=== PATIENT | female | born 1945 | race Caucasian/White ===

== ENCOUNTER 2018-05-05 15:07 | Emergency (ER) | payer OTHER ==
--- OUTSIDE RECORDS SUMMARY | 2018-05-05 15:09 | XMS REPORT | Clinical Summary ---
:1945 Author Organization [facility] Address [address] [place] [address] Care Team Providers Name Role Phone Leidy Zeeeduin Haleyson Primary Care Provider Allergies No Known Allergies Current Medications No known medications Active Problems Not on file Encounters Date Type Specialty Care Team Description 03/26/2018 Hospital Encounter Radiology Aayush Marques Chronic constipation 03/26/2018 Transcribe Orders Access Nancy Robledo Chronic constipation JOSE [place] (Primary Dx) after 05/04/2017 Social History Tobacco Use Types Packs/Day Years Used Date Never Smoker Alcohol Use Drinks/Week oz/Week Comments Yes 1 a week Sex Assigned at Date Recorded Not on file Last Filed Vital Signs Vital Sign Reading Time Taken Blood Pressure - - Pulse - - Temperature - - Respiratory Rate - - Oxygen Saturation - - Inhaled Oxygen Concentration - - Weight 45.8 kg (101 lb) 03/26/2018 8:26 AM CDT Height 160 cm (5' 3") 03/26/2018 8:26 AM CDT Body Mass Index 17.89 03/26/2018 8:26 AM CDT Plan of Treatment Health Maintenance Due Date Last Done Comments BREAST CANCER SCREENING 01/28/1994 COLON CANCER SCREENING 01/28/1994 SHINGRIX VACCINE (#1) 01/28/1994 ZOSTER VACCINE 2004 PNEUMOCOCCAL POLYSACCHARIDE VACCINE AGE 65 AND OVER 01/28/2009 PNEUMOCOCCAL-13 01/28/2009 INFLUENZA VACCINE 03/07/2018 Implants Implanted Type Area Wellfield Technician Device Expiration Model / Identifier Date Serial / Lot Strip Opthalmic Wide Grvd T[employer] Sld [place] 3.5mm - [id number] Surgical Left: LABTICIAN 07/06/2021 [id number] / Implanted: Qty: 1 on 10/05/2016 by Celso Davila MD Implants; Eye / Expanders; [id number] Extenders; Surgical Wires Sleeve Rnd Styl 70 Sceleral Bcklng [place] Strl - [id number] Surgical Left: LABTICIAN 07/06/2021 [id number] / Implanted: Qty: 1 on 10/05/2016 by Celso Davila MD Implants; Eye / Expanders; [id number] Extenders; Surgical Wires Procedures Procedure Name Priority Date/Time Associated Diagnosis Comments CT ABDOMEN PELVIS W Routine 03/26/2018 9:11 Chronic constipation Results for this CONTRAST AM CDT procedure are in the results section. ESTIMATED GFR Routine 03/26/2018 8:24 Results for this AM CDT procedure are in the results section. POC CREATININE Routine 03/26/2018 8:24 Results for this AM CDT procedure are in the results section. after 05/04/[address] Abdomen Pelvis W Contrast (03/26/2018 9:11 AM) Narrative Performed At CT ABDOMEN PELVIS W CONTRAST RADIANT CLINICAL INDICATION: K59.09 Other constipation, CHRONIC CONSTIPATION TECHNIQUE:Multidetector CT imaging of the abdomen and pelvis was performed following the intravenous administration of iodinated contrast with automated exposure control and/or iterative reconstruction techniques to radiation dose. COMPARISON:None FINDINGS: LUNG BASES:Clear. LIVER:There is mild steatosis of the liver. BILIARY:Normal. SPLEEN:Multiple calcified granuloma. PANCREAS:Normal. ADRENALS:Normal. KIDNEYS:There are too small to characterize hypodensities in the upper pole left kidney, statistically most likely a cystsmedially. An additional very low density focus is noted laterally (coronal image 35) consistent with a 6 mm fat-containing angiomyolipoma. GI:Large and small bowel are normal in caliber.There is mild to moderate amount stool through the transverse colon and proximal descending colon mixed with oral contrast but the distal colon is evacuated. No significant stool is identified in the right colon.No inflammatory changes are associated with the bowel. VASCULAR:Mild atherosclerosis. LYMPH NODES:No enlarged lymph nodes in the abdomen or pelvis. PELVIS:No lymphadenopathy or abnormal fluid collection.Urinary bladder is collapsed. Uterus is not visualized. BONES:Mild degenerative changes. OTHER: IMPRESSION: Mild amount stool in the left colon may reflect constipation although without significant distal stool. Incidental findings as described. Thank you for allowing us to participate in the care of your patient. [facility]-[id number] Procedure Note Hm Interface, Radiology Results Incoming - 03/26/2018 9:[address] ABDOMEN PELVIS W CONTRAST CLINICAL INDICATION: K59.09 Other constipation, CHRONIC CONSTIPATION TECHNIQUE: Multidetector CT imaging of the abdomen and pelvis was performed following the intravenous administration of iodinated contrast with automated exposure control and/or iterative reconstruction techniques to radiation dose. COMPARISON: None FINDINGS: LUNG BASES: Clear. LIVER: There is mild steatosis of the liver. BILIARY: Normal. SPLEEN: Multiple calcified granuloma. PANCREAS: Normal. ADRENALS: Normal. KIDNEYS: There are too small to characterize hypodensities in the upper pole left kidney, statistically most likely a cystsmedially. An additional very low density focus is noted laterally (coronal image 35) consistent with a 6 mm fat- containing angiomyolipoma. GI: Large and small bowel are normal in caliber. There is mild to moderate amount stool through the transverse colon and proximal descending colon mixed with oral contrast but the distal colon is evacuated. No significant stool is identified in the right colon. No inflammatory changes are associated with the bowel. VASCULAR: Mild atherosclerosis. LYMPH NODES: No enlarged lymph nodes in the abdomen or pelvis. PELVIS: No lymphadenopathy or abnormal fluid collection. Urinary bladder is collapsed. Uterus is not visualized. BONES: Mild degenerative changes. OTHER: IMPRESSION: Mild amount stool in the left colon may reflect constipation although without significant distal stool. Incidental findings as described. Thank you for allowing us to participate in the care of your patient. [facility]-[id number] Performing Organization Address City/State/Zipcode Phone Number [facility] [address] [place] [address] Estimated GFR (03/26/2018 8:24 AM) GFR Non Af Amer 61 mL/min/1.73 m2 [facility] DEPARTMENT OF PATHOLOGY AND GENOMIC MEDICINE GFR Af Amer 74 mL/min/1.73 m2 [facility] DEPARTMENT OF Comment: PATHOLOGY AND GENOMIC Chronic kidney disease: <60 mL/min/1.73m2 MEDICINE Kidney failure: <15 mL/min/1.73m2 The estimated GFR is calculated from the IDMS-traceable Modification of Diet in Renal Disease Equation. The accuracy of the calculation is poor when the creatinine is normal. Calculated values >90 mL/min/1.73m2 are not reported. This equation has not been validated in children (<18 years), women, the elderly (>70 years), or ethnic groups other than Caucasians and Americans. Specimen Blood Performing Organization Address City/State/[facility] Phone Number [facility] DEPARTMENT OF PATHOLOGY AND [address] [place] [address] GENOMIC MEDICINE POC creatinine (03/26/2018 8:24 AM) POC creatinine 0.9 0.5 - 0.9 mg/dl [facility] DEPARTMENT OF PATHOLOGY AND Comment: GENOMIC MEDICINE Meter ID: [id number] Customer Support Specialist: Benson Perez Specimen Blood Performing Organization Address City/[facility] Phone Number [facility] DEPARTMENT OF PATHOLOGY AND [address] [place] [address] GENOMIC MEDICINE after 05/04/2017 Insurance Payer Benefit Plan / Group Subscriber ID Type Phone Address UHC MEDICARE UNITED[facility] xxxxxxxxx O Home: [address] [phone] [place], [place] [address]
[2018-05-05] MEDS ORDERED: LIDOCAINE 2% MPF 5 ML VIAL ONE (15:31)
[2018-05-05] MEDS ORDERED: LIDOCAINE 1% W/EPI 1:100,000 MDV 50 ML VIAL ONE (15:31)
[2018-05-05] MEDS ORDERED: TETANUS & DIPHTHERIA TOX,ADULT 0.5 ML VIAL ONE (15:53)
--- NOTE | 2018-05-05 16:59 | EDPHYS ---
Physician Documentation [facility] Name: Sima Calhoun Age: 73 yrs Sex: Female : 1945 Arrival Date: 05/05/2018 Time: 15:09 Bed 7 Private MD: ED Physician Maico Flowers HPI: 05/05 15:35 This 73 yrs old Female presents to ER via Ambulatory with complaints of cp Laceration To Arm. 15:45 The patient has a laceration occurred at home, and there are no complicating factors. cp The injury was accidental. 15:45 The laceration(s) is(are) located on the right forearm. Onset: The symptoms/episode cp began/occurred today. Associated signs and symptoms: Pertinent negatives: heavy bleeding, suspected foreign body. 15:45 Patient reports striking arm against frame of hammock. cp Historical: - Allergies: 15:14 No Known Allergies; aj - Home Meds: 15:14 alprazolam 1 mg Oral Tb24 [Active]; atorvastatin 10 mg Oral tab [Active]; aj dextroamphetamine-amphetamine(base) Oral [Active]; levothyroxine oral [Active]; lisinopril 5 mg Oral tab [Active]; meloxicam 7.5 mg/5 mL Oral susp [Active]; - PMHx: 15:14 ADD/ADHD; Anxiety; Chronic pain; Hyperlipidemia; Hypertension; Hypothyroidism; aj - PSHx: 15:14 Hysterectomy; aj - Immunization history:: Last tetanus immunization: unknown. - Social history:: Smoking status: Patient/guardian denies using tobacco. - Ebola Screening: : Patient negative for fever greater than or equal to 101.5 degrees Fahrenheit, and additional compatible Ebola Virus Disease symptoms Patient denies exposure to infectious person Patient denies travel to an Ebola-affected area in the 21 days before illness onset No symptoms or risks identified at this time. ROS: 15:40 Constitutional: Negative for body aches, chills, fever, poor PO intake. cp 15:40 Eyes: Negative for injury, pain, redness, and discharge. cp 15:40 Cardiovascular: Negative for chest pain, palpitations. 15:40 Respiratory: Negative for cough, shortness of breath, wheezing. 15:40 Abdomen/GI: Negative for abdominal pain, nausea, vomiting, and diarrhea. 15:40 Skin: Positive for laceration(s), of the right forearm. 15:40 Neuro: Negative for numbness. 15:40 All other systems are negative. Exam: 15:45 Constitutional: The patient appears in no acute distress, alert, awake, well developed, cp well nourished. 15:45 Head/Face: Normocephalic, atraumatic. cp 15:45 Eyes: Periorbital structures: appear normal, Conjunctiva: normal, no exudate, no injection, Lids and lashes: appear normal, bilaterally. 15:45 ENT: External ear(s): are unremarkable, Nose: is normal, Mouth: Lips: moist, Oral mucosa: moist, Posterior pharynx: is normal, airway is patent. 15:45 Chest/axilla: Inspection: normal. 15:45 Cardiovascular: Rate: normal, Pulses: Pulses are 2+ in right radial artery and left radial artery. 15:45 Respiratory: the patient does not display signs of respiratory distress, Respirations: normal, no use of accessory muscles, no retractions, no splinting, no tachypnea. 15:45 Abdomen/GI: Inspection: abdomen appears normal. 15:45 Back: pain, is absent, ROM is normal. 15:45 Musculoskeletal/extremity: Exam is negative for bony tenderness, decreased range of motion. 15:45 Skin: injury, laceration(s), the wound is approximately 12 cm(s), of the right forearm, that can be described as clean, no foreign body, irregular, with mild bleeding. 15:45 Neuro: Motor: moves all fours, strength is normal, Sensation: no obvious gross deficits. Vital Signs: 15:14 BP 152 / 91; Pulse 83; Resp 17; Temp 98.1; Pulse Ox 96% on R/A; Weight 53.07 kg; Height aj 5 ft. 3 in. (160.02 cm); 17:09 BP 151 / 84; Pulse 79; Resp 16; Pulse Ox 97% on R/A; la1 15:14 Body Mass Index 20.73 (53.07 kg, 160.02 cm) aj Procedures: 17:00 Splinting: Splint applied to right forearm using Orthoglass splint, applied by tech. cp Examined by me, post splint application: neurovascular intact, Patient tolerated well. Laceration: 16:35 Wound Repair of 12cm ( 4.7in ) subcutaneous laceration to dorsal aspect of right cp forearm. Linear shaped.. Distal neuro/vascular/tendon intact. Anesthesia: Wound infiltrated with 12 mls of 1% lidocaine w/ Epi. Wound prep: Moderate cleansing by me, Wound irrigation by me, Copious irrigation. Skin closed with 14 4-0 Prolene using simple sutures and sterile technique. Dressed with Bacitracin, 4x4's, ulna gutter splint. Patient tolerated well. MDM: 15:19 Patient medically screened. cp 16:00 Differential diagnosis: superficial laceration, tendon injury, vascular injury. cp 16:55 Data reviewed: vital signs, nurses notes, and as a result, I will discharge patient. cp 16:55 Counseling: I had a detailed discussion with the patient and/or guardian regarding: the cp historical points, exam findings, and any diagnostic results supporting the discharge/admit diagnosis, the need for outpatient follow up, a family practitioner, to return to the emergency department if symptoms worsen or persist or if there are any questions or concerns that arise at home. Response to treatment: the patient's symptoms have markedly improved after treatment, and as a result, I will discharge patient. 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 Exp: la1 05/03/2020. Lot #: [id number]. } Route: IM; Site: left deltoid; 17:08 Follow up: Response: No adverse reaction la1 Disposition: 17:57 Co-signature as Attending Physician, Maico Flowers MD. Disposition: 05/05/18 16:57 Discharged to Home. Impression: Laceration without foreign body of right forearm. - Condition is Stable. - Discharge Instructions: Laceration Care, Adult. - Medication Reconciliation Form, Thank You Letter, Antibiotic Education, Prescription Opioid Use form. - Follow up: Private Physician; When: 1 week; Reason: Wound Recheck. - Problem is new. - Symptoms have improved. Signatures: Vandana Jorge RN RN aj Fortunato Plummer RN RN la1 Deon Gomez PA PA cp Starr, Gregory, MD MD gs Corrections: (The following items were deleted from the chart) 17:09 16:57 05/05/2018 16:57 Discharged to Home. Impression: Laceration without foreign body la1 of right forearm. Condition is Stable. Forms are Medication Reconciliation Form, Thank You Letter, Antibiotic Education, Prescription Opioid Use. Follow up: Private Physician; When: 1 week; Reason: Wound Recheck. Problem is new. Symptoms have improved. cp
--- NOTE | 2018-05-05 16:59 | ER ---
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 Denies LOC. Transition of care: patient was not received from another setting of care. Complicating Factors: There are no complicating factors for this patient. Onset of symptoms was May 05, 2018. Risk Assessment: Do you want to hurt yourself or someone else? Patient reports no desire to harm self or others. Initial Sepsis Screen: Does the patient meet any 2 criteria? No. Patient's initial sepsis screen is negative. Does the patient have a suspected source of infection? No. Patient's initial sepsis screen is negative. Care prior to arrival: None. 15:13 Method Of Arrival: Ambulatory 15:13 Acuity: JEANIE 4 Triage Assessment: 15:14 General: Appears in no apparent distress. comfortable, Behavior is calm, cooperative, aj appropriate for age. Pain: Complains of pain in dorsal aspect of right forearm. Neuro: Level of Consciousness is awake, alert, obeys commands, Oriented to person, place, time, situation, Appropriate for age. Respiratory: Airway is patent Respiratory effort is even, unlabored, Respiratory pattern is regular, symmetrical. Derm: Skin is intact, is healthy with good turgor, Skin is pink, warm \T\ dry. normal. Injury Description: Laceration sustained to dorsal aspect of right forearm. Historical: - Allergies: 15:14 No Known Allergies; aj - Home Meds: 15:14 alprazolam 1 mg Oral Tb24 [Active]; atorvastatin 10 mg Oral tab [Active]; aj dextroamphetamine-amphetamine(base) Oral [Active]; levothyroxine oral [Active]; lisinopril 5 mg Oral tab [Active]; meloxicam 7.5 mg/5 mL Oral susp [Active]; - PMHx: 15:14 ADD/ADHD; Anxiety; Chronic pain; Hyperlipidemia; Hypertension; Hypothyroidism; aj - PSHx: 15:14 Hysterectomy; aj - Immunization history:: Last tetanus immunization: unknown. - Social history:: Smoking status: Patient/guardian denies using tobacco. - Ebola Screening: : Patient negative for fever greater than or equal to 101.5 degrees Fahrenheit, and additional compatible Ebola Virus Disease symptoms Patient denies exposure to infectious person Patient denies travel to an Ebola-affected area in the 21 days before illness onset No symptoms or risks identified at this time. Screenin:20 Abuse screen: Denies threats or abuse. Nutritional screening: No deficits noted. la1 Tuberculosis screening: No symptoms or risk factors identified. Fall Risk None identified. Assessment: 16:19 General: Appears in no apparent distress. Behavior is calm, cooperative. Pain: Denies la1 pain. Neuro: Level of Consciousness is awake, alert, obeys commands, Oriented to person, place, time, situation. Cardiovascular: Capillary refill < 3 seconds Patient's skin is warm and dry. Respiratory: Airway is patent Respiratory effort is even, unlabored, Respiratory pattern is regular, symmetrical. Musculoskeletal: Circulation, motion, and sensation intact. Capillary refill < 3 seconds. Injury Description: Laceration sustained to dorsal aspect of right forearm is jagged, 2.6 to 7.5 cm long, was sustained 1-2 hours ago. is bleeding a small amount. 16:54 Reassessment: Patient appears in no apparent distress at this time. No changes from la1 previously documented assessment. Patient and/or family updated on plan of care and expected duration. Pain level reassessed. Vital Signs: 15:14 BP 152 / 91; Pulse 83; Resp 17; Temp 98.1; Pulse Ox 96% on R/A; Weight 53.07 kg; Height aj 5 ft. 3 in. (160.02 cm); 17:09 BP 151 / 84; Pulse 79; Resp 16; Pulse Ox 97% on R/A; la1 15:14 Body Mass Index 20.73 (53.07 kg, 160.02 cm) ED Course: 15:09 Patient arrived in ED. mr 15:14 Triage completed. aj 15:14 Arm band placed on left wrist. Patient placed in an exam room. aj 15:19 Deon Gomez PA is PHCP. cp 15:19 Maico Flowers MD is Attending Physician. cp 15:19 Fortunato Plummer, RN is Primary Nurse. la1 16:20 Bed in low position. Call light in reach. Side rails up X 1. la1 16:50 Orthoglass splint: Ulnar gutter/Boxer splint applied on right forearm. Radial pulse jb1 present and within normal limits before and after application of splint. Capillary refill two seconds before and after application of splint. 17:08 No provider procedures requiring assistance completed. Patient did not have IV access la1 during this emergency room visit. 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 Exp: la1 05/03/2020. Lot #: [id number]. } Route: IM; Site: left deltoid; 17:08 Follow up: Response: No adverse reaction la1 Outcome: 16:57 Discharge ordered by . cp 17:08 Discharged to home ambulatory. la1 17:08 Condition: stable 17:08 Discharge instructions given to patient, Instructed on discharge instructions, follow up and referral plans. medication usage, Demonstrated understanding of instructions, follow-up care. 17:09 Patient left the ED. la1 Signatures: Toni Damon jb1 Vandana Jorge RN RN aj Rivera, Maria mr Attema, Lee, RN RN la1 Deon Gomez PA PA cp
== END 2018-05-05 17:09 | disposition home or self-care (01) ==
LOC: ER 15:07
PROC: 0JQG0ZZ Repair Right Lower Arm Subcutaneous Tissue and Fascia, Open Approach (ICD-10-PCS; principal; 2018-05-05)
PROC: 2W3CX1Z Immobilization of Right Lower Arm using Splint (ICD-10-PCS; 2018-05-05)
DX: S51.811A Laceration without foreign body of right forearm, initial encounter (principal); W22.8XXA Striking against or struck by other objects, initial encounter; Y93.9 Activity, unspecified; Y92.009 Unspecified place in unspecified non-institutional (private) residence as the place of occurrence of the external cause; Z23 Encounter for immunization; I10 Essential (primary) hypertension; E78.5 Hyperlipidemia, unspecified; E03.9 Hypothyroidism, unspecified; F41.9 Anxiety disorder, unspecified; F90.9 Attention-deficit hyperactivity disorder, unspecified type
CPT/HCPCS: 90714; 99283

== ENCOUNTER 2018-10-10 11:02 | Emergency (ER) | payer OTHER ==
--- OUTSIDE RECORDS SUMMARY | 2018-10-10 11:05 | XMS REPORT | Clinical Summary ---
:1945 Author Organization [facility] Address [address] [place] [address] Care Team Providers Name Role Phone Yayo Josefina Haleyson Primary Care Provider Allergies No Known Allergies Medications No known medications Active Problems Not on file Encounters Date Type Specialty Care Team Description 03/26/2018 Hospital Encounter Radiology Aayush Marques Chronic constipation 03/26/2018 Transcribe Orders Access Nancy Robledo Chronic constipation JOSE [place] (Primary Dx) after 10/09/2017 Social History Tobacco Use Types Packs/Day Years Used Date Never Smoker Alcohol Use Drinks/Week oz/Week Comments Yes 1 a week Sex Assigned at Date Recorded Not on file Job Start Date Occupation Industry Not on file Not on file Not on file Travel History Travel Start Travel End No recent travel history available. Last Filed Vital Signs Vital Sign Reading [...] CANCER SCREENING 01/28/1994 COLON CANCER SCREENING 01/28/1994 SHINGLES VACCINES (#1) 01/28/1994 65+ PNEUMOCOCCAL VACCINE (1 of 2 - PCV13) 01/28/2009 PNEUMOCOCCAL POLYSACCHARIDE VACCINE AGE 65 AND OVER 01/28/2009 INFLUENZA VACCINE 03/07/2018 Implants Implanted Type Area Adjustment Examiner Device Shelf Model / Identifier Expiration Serial / Date Lot Strip Opthalmic Wide Grvd T[employer] Sld [place] 3.5mm - [id number] Surgical Left: LABTICIAN 07/06/2021 [id number] / Implanted: Qty: 1 on 10/05/2016 by Celso Davila MD Implants; Eye / Expanders; [id number] Extenders; Surgical Wires Sleeve Rnd Styl 70 Sceleral Bcklng [place] Strl - [id number] Surgical Left: LABTICIAN 07/06/2021 [id number] / Implanted: Qty: 1 on 10/05/2016 by Celso Davila MD Implants; Eye / Expanders; [id number] Extenders; Surgical Wires Procedures Procedure Name Priority [...] procedure are in the results section. after 10/09/[address] Abdomen Pelvis W Contrast (03/26/2018 9:11 AM CDT) Narrative Performed At CT ABDOMEN PELVIS W [...] participate in the care of your patient. [facility]-[id number] Procedure Note Hm Interface, Radiology Results Incoming [...] participate in the care of your patient. [facility]-[id number] Performing Organization Address City/State/Zipcode Phone Number [facility] [address] [place] [address] Estimated GFR (03/26/2018 8:24 AM CDT) GFR Non Af Amer 61 mL/min/1.73 m2 [facility] DEPARTMENT OF PATHOLOGY AND GENOMIC MEDICINE GFR Af Amer 74 mL/min/1.73 m2 [facility] DEPARTMENT OF Comment: PATHOLOGY AND GENOMIC Chronic [...] and Americans. Specimen Blood Performing Organization Address City/[facility] Phone Number [facility] DEPARTMENT OF PATHOLOGY AND [address] [place] [address] GENOMIC MEDICINE POC creatinine (03/26/2018 8:24 AM CDT) POC creatinine 0.9 0.5 - 0.9 mg/dl [facility] DEPARTMENT OF PATHOLOGY AND Comment: GENOMIC MEDICINE Meter ID: [id number] Sternman: Benson Perez Specimen Blood Performing Organization Address City/[facility] Phone Number [facility] DEPARTMENT OF PATHOLOGY AND [address] [place] [address] GENOMIC MEDICINE after 10/09/2017 Insurance Payer Benefit Plan / Group Subscriber ID Type Phone Address UHC MEDICARE [employer] MEDICARE xxxxxxxxx O Advance Directives Patient has advance care planning documents on file. For more information, please contact:Alex Cook[address] [place] [address]
--- OUTSIDE RECORDS SUMMARY | 2018-10-10 11:05 | XMS REPORT | Continuity of Care Document ---
:1945 Author Organization [facility] Address [address] [place] [phone] Phone Unavailable Care Team Providers Name Role Phone HENRRY LEIGH Primary Care Physician Insurance Providers Guarantor [employer] Address [address] [place] [phone] Email [email or web address] Policy Number [id number] Subscriber's Name Esau Calhoun Relationship Self / Same As Patient Group Number [id number] Group Name NA Advance Directives Directive Response Recorded Date/Time Patient/Family Given Education Material R/T Y - PB 07/11/18 07/11/18 9:45am Directives? Problems Medical Problem Onset Date Status Bronchitis Unknown Acute Eczema Unknown Acute Influenza A Unknown Acute Medications Current Home Medications Medication Dose Units Route Directions Days Qty Instructions Start Date Amoxicillin (Amoxil 500 Mg ORAL Every 8 Hours 500 Mg *) 500 Mg Cap Betamethasone Cre TOPICAL Twice A Day Dipropionate Aug (Betamethasone Dipropionat) 0.05 % Gel Hydroxyzine Hcl 25 Mg ORAL Three Times (Atarax 25 Mg*) 25 Daily As Needed Mg Tab Social History Social History Problem Response Recorded Date/Time Onset Date Status Hx Physical Abuse No 07/25/2016 9:06am Not Applicable Not Applicable Smoking Status Start Date Stop Date Never smoker Hospital Discharge Instructions No hospital discharge instruction information available. Plan of Care Prescriptions See Medication Section Functional Status No functional status information available. Allergies, Adverse Reactions, Alerts Allergen Type Severity Reaction Status Last Updated No Known Allergies Allergy Unknown Active 05/16/14 Immunizations No immunization information available. Vital Signs Acute Vital Signs Vital Response Date/Time Blood Pressure 139/56 mm Hg 07/11/2018 10:22am Pulse Pulse Rate (adult) 50 beats per minute (60 - 100) 07/11/2018 10:22am Respiratory Rate 16 breaths per minute (10 - 24) 07/11/2018 10:22am Temperature Source Temporal Artery Scan 07/11/2018 10:22am Results Laboratory Results Test Name Result Units Flags Reference Collection Result Comments Date/Time Date/Time Blood Urea 14 mg/dL 8-23 07/11/2018 07/11/2018 Nitrogen 10:09am 10:31am Creatinine 0.7 mg/dL 0.50-0.90 07/11/2018 07/11/2018 10:09am 10:31am Glomerular > 60.00 07/11/2018 07/11/2018 GFR RESULTS ARE REPORTED IN mL/min/1.73m2. Filtration 10:09am 10:31am Rate Calc Normal GFR: >60mL/min Moderately decreased GFR: 30-59 mL/min Severely decreased GFR: 15-29 mL/min Kidney Failure (or Dialysis): <15 mL/min The calculated eGFR is not valid for patients younger than 18 years or older than 75 years. Calcium Level 9.1 mg/dL 8.8-10.2 07/11/2018 07/11/2018 10:09am 10:31am Procedures No procedure information available. Encounters Encounter Location Arrival/Admit Date Discharge/Depart Date Attending Provider Discharged [place] 07/11/18 9:46am 08/06/18 11:59pm [facility]
--- NOTE | 2018-10-10 11:59 | EDPHYS ---
Physician Documentation [facility] Name: Sima Calhoun Age: 73 yrs Sex: Female : 1945 Arrival Date: 10/10/2018 Time: 11:05 Bed 16 Private MD: out of town, doctor ED Physician Oseas Su HPI: 10/10 11:57 This 73 yrs old Female presents to ER via Ambulatory with complaints of High pm1 Blood Pressure. 11:57 The patient has elevated blood pressure and discovered this at home, with a home device.pm1 11:57 Onset: The symptoms/episode began/occurred 3 month(s) ago. Modifying factors: The pm1 symptoms are aggravated by unknown . Associated signs and symptoms: The patient has no apparent associated signs or symptoms, Pertinent negatives: chest pain, dizziness, dyspnea, headache, lightheadedness, nausea, visual changes, vomiting, weakness. Severity of symptoms: in the emergency department the blood pressure is improved. The patient has experienced similar episodes in the past, a few times. The patient has been recently seen by a physician: the patient's primary care provider, with similar presenting complaints, given new BP medication, losartan, two weeks ago. Patient with systolic blood pressure 170 this AM. Patient had appointment today at 1530 for reevaluation of BP but canceled it to have blood pressure evaluated and treated in the ER. Historical: - Allergies: 11:18 No Known Allergies; tw2 - Home Meds: 11:18 Paxil 20 mg Oral tab 1 tab once daily [Active]; meloxicam 7.5 mg/5 mL Oral susp tw2 [Active]; alprazolam 1 mg Oral Tb24 [Active]; metoprolol tartrate 50 mg Oral tab 1 tab once daily [Active]; losartan 50 mg oral tab 1 tab once daily [Active]; levothyroxine 112 mcg oral tab 1 tab once daily [Active]; dextroamphetamine-amphetamine(base) 15 mg Oral 1 tab once daily [Active]; cyclobenzaprine 10 mg Oral tab 1 tab 3 times per day [Active]; atorvastatin 10 mg oral tab 1 tab once daily [Active]; - PMHx: 11:18 ADD/ADHD; Anxiety; Chronic pain; Hyperlipidemia; Hypertension; Hypothyroidism; tw2 - PSHx: 11:18 Hysterectomy; tw2 - Immunization history:: Adult Immunizations. - Social history:: Smoking status: Patient/guardian denies using tobacco. - Ebola Screening: : Patient denies travel to an Ebola-affected area in the 21 days before illness onset. ROS: 11:57 Constitutional: Negative for fever, chills, and weight loss, Eyes: Negative for injury, pm1 pain, redness, and discharge, ENT: Negative for injury, pain, and discharge, Neck: Negative for injury, pain, and swelling, Cardiovascular: Negative for chest pain, palpitations, and edema, Respiratory: Negative for shortness of breath, cough, wheezing, and pleuritic chest pain, Abdomen/GI: Negative for abdominal pain, nausea, vomiting, diarrhea, and constipation, Back: Negative for injury and pain, : Negative for injury, bleeding, discharge, and swelling, MS/Extremity: Negative for injury and deformity, Skin: Negative for injury, rash, and discoloration, Neuro: Negative for headache, weakness, numbness, tingling, and seizure. Exam: 11:57 Constitutional: This is a well developed, well nourished patient who is awake, alert, pm1 and in no acute distress. Head/Face: Normocephalic, atraumatic. Eyes: Pupils equal round and reactive to light, extra-ocular motions intact. Lids and lashes normal. Conjunctiva and sclera are non-icteric and not injected. Cornea within normal limits. Periorbital areas with no swelling, redness, or edema. ENT: Nares patent. No nasal discharge, no septal abnormalities noted. Tympanic membranes are normal and external auditory canals are clear. Oropharynx with no redness, swelling, or masses, exudates, or evidence of obstruction, uvula midline. Mucous membranes moist. Neck: Trachea midline, no thyromegaly or masses palpated, and no cervical lymphadenopathy. Supple, full range of motion without nuchal rigidity, or vertebral point tenderness. No Meningismus. Chest/axilla: Normal chest wall appearance and motion. Nontender with no deformity. No lesions are appreciated. Cardiovascular: Regular rate and rhythm with a normal S1 and S2. No gallops, murmurs, or rubs. Normal PMI, no JVD. No pulse deficits. Respiratory: Lungs have equal breath sounds bilaterally, clear to auscultation and percussion. No rales, rhonchi or wheezes noted. No increased work of breathing, no retractions or nasal flaring. Abdomen/GI: Soft, non-tender, with normal bowel sounds. No distension or tympany. No guarding or rebound. No evidence of tenderness throughout. Back: No spinal tenderness. No costovertebral tenderness. Full range of motion. Skin: Warm, dry with normal turgor. Normal color with no rashes, no lesions, and no evidence of cellulitis. MS/ Extremity: Pulses equal, no cyanosis. Neurovascular intact. Full, normal range of motion. 11:57 Neuro: Orientation: is normal, Motor: is normal, moves all fours, Sensation: is normal, no obvious gross deficits, Gait: is steady, at a normal pace, without difficulty. Vital Signs: 11:12 BP 168 / 97; Pulse 65; Resp 17; Temp 97.9(TE); Pulse Ox 98% on R/A; Weight 56.7 kg (R); tw2 Height 5 ft. 3 in. (160.02 cm); Pain 0/10; 12:04 BP 156 / 85; Pulse 65; Resp 18; Pulse Ox 100% on R/A; hj 11:12 Body Mass Index 22.14 (56.70 kg, 160.02 cm) tw2 MDM: 11:26 Patient medically screened. pm1 11:57 Data reviewed: vital signs. Data interpreted: Pulse oximetry: on room air is 98 %. pm1 Interpretation: normal. Counseling: I had a detailed discussion with the patient and/or guardian regarding: the historical points, exam findings, and any diagnostic results supporting the discharge/admit diagnosis, the need for outpatient follow up, to return to the emergency department if symptoms worsen or persist or if there are any questions or concerns that arise at home. Administered Medications: No medications were administered Disposition: 13:35 Co-signature as Attending Physician, Oseas Su MD I agree with the assessment and kdr plan of care. Disposition: 10/10/18 11:58 Discharged to Home. Impression: Essential (primary) hypertension. - Condition is Stable. - Discharge Instructions: Hypertension, How to Take Your Blood Pressure, [id number], DASH Eating Plan, Managing Your Hypertension. - Medication Reconciliation Form, Thank You Letter, Antibiotic Education form. - Follow up: Emergency Department; When: As needed; Reason: Worsening of condition. Follow up: Private Physician; When: 2 - 3 days; Reason: Recheck today's complaints, Continuance of care, Re-evaluation by your physician. - Problem is new. - Symptoms have improved. Signatures: Oseas Su MD MD [facility] Celestine Coburn RN RN hj Andre Castellanos, [employer] WORK[employer] pm1 Tabitha Rowley RN RN tw2 Corrections: (The following items were deleted from the chart) 12:06 11:58 10/10/2018 11:58 Discharged to Home. Impression: Essential (primary) hj hypertension. Condition is Stable. Forms are Medication Reconciliation Form, Thank You Letter, Antibiotic Education, Prescription Opioid Use. Follow up: Emergency Department; When: As needed; Reason: Worsening of condition. Follow up: Private Physician; When: 2 - 3 days; Reason: Recheck today's complaints, Continuance of care, Re-evaluation by your physician. Problem is new. Symptoms have improved. pm1
--- NOTE | 2018-10-10 11:59 | ER ---
Nurse's Notes [facility] Name: Sima Calhoun Age: 73 yrs Sex: Female : 1945 Arrival Date: 10/10/2018 Time: 11:05 Bed 16 Private MD: out of town, doctor Diagnosis: Essential (primary) hypertension Presentation: 10/10 11:11 Presenting complaint: Patient states: my blood pressure is high, it has been high for a tw2 couple of months on and off it was 170/111. Transition of care: patient was not received from another setting of care. Onset of symptoms was October 10, 2018. Risk Assessment: Do you want to hurt yourself or someone else? Patient reports no desire to harm self or others. Initial Sepsis Screen: Does the patient meet any 2 criteria? No. Patient's initial sepsis screen is negative. Does the patient have a suspected source of infection? No. Patient's initial sepsis screen is negative. Care prior to arrival: None. 11:11 Method Of Arrival: Ambulatory tw2 11:11 Acuity: JEANIE 4 tw2 Triage Assessment: 11:18 General: Appears slender, Behavior is anxious. Pain: Denies pain. tw2 Historical: - Allergies: 11:18 No Known Allergies; tw2 - Home Meds: 11:18 Paxil 20 mg Oral tab 1 tab once daily [Active]; meloxicam 7.5 mg/5 mL Oral susp tw2 [Active]; alprazolam 1 mg Oral Tb24 [Active]; metoprolol tartrate 50 mg Oral tab 1 tab once daily [Active]; losartan 50 mg oral tab 1 tab once daily [Active]; levothyroxine 112 mcg oral tab 1 tab once daily [Active]; dextroamphetamine-amphetamine(base) 15 mg Oral 1 tab once daily [Active]; cyclobenzaprine 10 mg Oral tab 1 tab 3 times per day [Active]; atorvastatin 10 mg oral tab 1 tab once daily [Active]; - PMHx: 11:18 ADD/ADHD; Anxiety; Chronic pain; Hyperlipidemia; Hypertension; Hypothyroidism; tw2 - PSHx: 11:18 Hysterectomy; tw2 - Immunization history:: Adult Immunizations. - Social history:: Smoking status: Patient/guardian denies using tobacco. - Ebola Screening: : Patient denies travel to an Ebola-affected area in the 21 days before illness onset. Screenin:27 Abuse screen: Denies threats or abuse. Denies injuries from another. Nutritional hj screening: No deficits noted. Tuberculosis screening: No symptoms or risk factors identified. Fall Risk None identified. Assessment: 11:28 General: Appears in no apparent distress. uncomfortable, Behavior is calm, cooperative, hj appropriate for age. Pain: Denies pain. Neuro: Level of Consciousness is awake, alert, obeys commands, Oriented to person, place, time, situation, Appropriate for age. Cardiovascular: Capillary refill < 3 seconds Patient's skin is warm and dry. Respiratory: Airway is patent Respiratory effort is even, unlabored, Respiratory pattern is regular, symmetrical. GI: No signs and/or symptoms were reported involving the gastrointestinal system. : No signs and/or symptoms were reported regarding the genitourinary system. EENT: No signs and/or symptoms were reported regarding the EENT system. Derm: No signs and/or symptoms reported regarding the dermatologic system. Musculoskeletal: No signs and/or symptoms reported regarding the musculoskeletal system. 12:05 Reassessment: D/C instructions given;. hj Vital Signs: 11:12 BP 168 / 97; Pulse 65; Resp 17; Temp 97.9(TE); Pulse Ox 98% on R/A; Weight 56.7 kg (R); tw2 Height 5 ft. 3 in. (160.02 cm); Pain 0/10; 12:04 BP 156 / 85; Pulse 65; Resp 18; Pulse Ox 100% on R/A; hj 11:12 Body Mass Index 22.14 (56.70 kg, 160.02 cm) tw2 ED Course: 11:05 Patient arrived in ED. mr 11:06 out of town, doctor is Private Physician. mr 11:12 Triage completed. tw2 11:18 Arm band placed on. tw2 11:20 Andre Castellanos NP is PHCP. pm1 11:20 Oseas Su MD is Attending Physician. pm1 11:24 Celestine Coburn RN is Primary Nurse. hj 11:27 Patient has correct armband on for positive identification. Placed in gown. Bed in low hj position. Call light in reach. Side rails up X 1. Adult w/ patient. 12:05 No provider procedures requiring assistance completed. Patient did not have IV access hj during this emergency room visit. Administered Medications: No medications were administered Outcome: 11:58 Discharge ordered by MD. pm1 12:05 Discharged to home ambulatory, with family. hj 12:05 Condition: stable 12:05 Discharge instructions given to patient, family, Instructed on discharge instructions, follow up and referral plans. Demonstrated understanding of instructions, follow-up care. 12:06 Patient left the ED. Signatures: Alisa Wren Henry RN RN Andre Castellanos NP [employer]ORCH OPERATOR pm1 Tabitha Rowley RN RN tw2 Corrections: (The following items were deleted from the chart) 11:12 11:11 Presenting complaint: Patient states: my blood pressure is leandra, it has been tw2 high for a couple of months on and off it was 170/111, tw2
== END 2018-10-10 12:06 | disposition home or self-care (01) ==
LOC: ER 11:02
DX: I10 Essential (primary) hypertension (principal); E78.5 Hyperlipidemia, unspecified; F41.9 Anxiety disorder, unspecified; F90.9 Attention-deficit hyperactivity disorder, unspecified type
CPT/HCPCS: 99281

== ENCOUNTER 2019-08-30 10:35 | Emergency (ER) | payer OTHER ==
--- OUTSIDE RECORDS SUMMARY | 2019-08-30 10:38 | XMS REPORT | Continuity of Care Document ---
:1945 Author Organization [facility] Address [address] [place] [phone] Phone Unavailable Care Team Providers Name Role Phone HENRRY LEIGH Primary Care Physician Insurance Providers Guarantor Bertha Calhoungy Address [address] [place] [phone] Email [email or web address] [email or web address] Policy Number [id number] Subscriber's Name Esau Calhoun Relationship Self / Same As Patient Group Number [id number] Group Name NA Advance Directives Directive Response Recorded Date/Time Name of Surrogate/Decision Maker NA 01/09/19 8:59am Patient/Family Given Education Material R/T Directives? Y - SM 01/09/19 8: 59am Problems Medical Problem Onset Date Status Bronchitis Unknown Acute Eczema Unknown Acute Influenza A Unknown Acute Medications Current Home Medications Medication Dose Units Route Directions Days Qty Instructions Start Date Amoxicillin (Amoxil 500 Mg ORAL Every 8 Hours *) 500 Mg Cap Betamethasone Cre TOPICAL [...] Vital Signs Vital Response Date/Time Blood Pressure 132/66 mm Hg 01/09/2019 9:18am Pulse Pulse Rate (adult) 69 beats per minute (60 - 100) 01/09/2019 9:18am Respiratory Rate 17 breaths per minute (10 - 24) 01/09/2019 9:18am Temperature Source Temporal Artery Scan 01/09/2019 9:18am Results Laboratory Results Test Name Result Units Flags Reference Collection Result Comments Date/Time Date/Time Blood Urea 23 mg/dL 8-23 01/09/2019 01/09/2019 Nitrogen 9:11am 9:42am Creatinine 1.0 mg/dL H 0.50-0.90 01/09/2019 01/09/2019 9:11am 9:42am Glomerular 54.20 L 01/09/2019 01/09/2019 GFR RESULTS ARE REPORTED IN mL/min/1.73m2. Filtration Rate 9:11am 9:42am Calc Normal GFR: >60mL/min Moderately decreased GFR: 30-59 mL/min Severely decreased GFR: 15-29 mL/min Kidney Failure (or Dialysis): <15 mL/min The calculated eGFR is not valid for patients younger than 18 years or older than 75 years. Calcium Level 9.7 mg/dL 8.8-10.2 01/09/2019 01/09/2019 9:11am 9:42am Procedures No procedure information available. Encounters Encounter Location Arrival/Admit Date Discharge/Depart Date Attending Provider Discharged [place] 01/09/19 8:59am 02/03/19 11:59pm [facility]
[2019-08-30] MEDS ORDERED: HYDROCODONE/APAP 5/325 MG TAB ONE (11:20)
[2019-08-30] MEDS ORDERED: predniSONE 20 MG TAB ONE (11:20)
--- NOTE | 2019-08-30 12:05 | RAD REPORT ---
EXAM DESCRIPTION: CT - [id number] - 08/30/2019 11:51 am CLINICAL HISTORY: Headache, neck pain, neck injury COMPARISON: None. TECHNIQUE: Axial 5 mm thick images of the head were obtained. Axial 2 mm thick images of the cervic al spine were obtained with sagittal and coronal reconstruction images generated and reviewed. All CT scans are performed using dose optimization technique as appropriate and may include automated exposure control or mA/KV adjustment according to patient size. FINDINGS: No intracranial hemorrhage, mass, edema or acute intracranial finding. No suspicion for ac quentin infarction. No extra-axial fluid collections. Mastoid air cells and paranasal sinuses are clear. No globe or orbit abnormality seen. Mild atrophy and chronic ischemic changes are present. Ventricles are in proportion to the volume loss. Arterial and physiologic calcifications are present. Cervical body height and alignment are normal. C5-6 disc space narrowing is present. Endplate spurs a re present and there is uncovertebral joint hypertrophy. C4-5 disc space narrowing also present. Sign ificant degenerative changes are present at the dens C1 level. Transverse ligament is partially calci fied. Very prominent uncovertebral joint hypertrophy causes bony foraminal encroachment on the left a t C4-5. Moderate left-side and severe right-sided foraminal stenosis from uncovertebral joint hypertr ophy at C5-6. Borderline spinal stenosis present at C5-6 measuring 9-10 mm. No fracture or acute bony abnormality. Central canal detail is inherently limited. No paraspinal mass or hematoma. IMPRESSION: Mild atrophy and chronic ischemic change with no acute intracranial finding. No fracture or acute cervical spine finding. Degenerative changes are present with borderline spinal stenosis at C5-6, severe critical foraminal stenosis on the right at C5-6 with prominent left-sided C 4-5 foraminal stenosis.
--- NOTE | 2019-08-30 13:05 | EDPHYS ---
Physician Documentation [facility] Name: Sima Calhoun Age: 74 yrs Sex: Female : 1945 Arrival Date: 08/30/2019 Time: 10:37 Bed 12 Private MD: ED Physician Oseas Su HPI: 08/30 11:28 This 74 yrs old Female presents to ER via Wheelchair with complaints of Neck kb Pain, >24Hrs Old. 11:28 The patient or guardian complains of pain, that is acute, tenderness. The symptoms are kb located on the left lateral aspect of neck and left posterior aspect of neck and right lateral aspect of neck and right posterior aspect of neck. Onset: The symptoms/episode began/occurred yesterday. Context: The problem was sustained at home, The neck injury/problem resulted from twisting wrong while cleaning. Associated signs and symptoms: The patient has no apparent associated signs or symptoms, The patient denies any alcohol use. The patient is not apparently intoxicated. No neurological symptoms were experienced by the patient prior to arrival in the emergency department. The pain does not radiate. Modifying factors: The symptoms are alleviated by nothing. the symptoms are aggravated by movement, pressure. Severity of symptoms: At their worst the symptoms were moderate, in the emergency department the symptoms are unchanged. The patient has not experienced similar symptoms in the past. The patient has not recently seen a physician. Pt reports she twisted her neck wrong when she was cleaning 2 days ago, developed pain to neck yesterday and it has continued today. Reports daily headaches for 3 years that she told her PCP about, but no testing has been done. . Historical: - Allergies: 10:48 No Known Allergies; aa5 - Home Meds: 10:46 alprazolam 1 mg Oral Tb24 [Active]; atorvastatin 10 mg Oral tab 1 tab once daily aa5 [Active]; cyclobenzaprine 10 mg Oral tab 1 tab 3 times per day [Active]; dextroamphetamine-amphetamine(base) 15 mg Oral 1 tab once daily [Active]; levothyroxine 112 mcg tab 1 tab once daily [Active]; losartan 50 mg Oral tab 1 tab once daily [Active]; meloxicam 7.5 mg/5 mL Oral susp [Active]; metoprolol tartrate 50 mg Oral tab 1 tab once daily [Active]; Paxil 20 mg Oral tab 1 tab once daily [Active]; - PMHx: 10:46 ADD/ADHD; Anxiety; Chronic pain; Hyperlipidemia; Hypertension; Hypothyroidism; aa5 10:48 Arthritis; aa5 - PSHx: 10:46 Hysterectomy; aa5 - Immunization history:: Adult Immunizations up to date. - Social history:: Smoking status: Patient denies any tobacco usage or history of. - Ebola Screening: : No symptoms or risks identified at this time. ROS: 11:27 Constitutional: Negative for fever, chills, and weight loss, Eyes: Negative for injury, kb pain, redness, and discharge, ENT: Negative for injury, pain, and discharge, Cardiovascular: Negative for chest pain, palpitations, and edema, Respiratory: Negative for shortness of breath, cough, wheezing, and pleuritic chest pain, Abdomen/GI: Negative for abdominal pain, nausea, vomiting, diarrhea, and constipation, Back: Negative for injury and pain, : Negative for injury, bleeding, discharge, and swelling, MS/Extremity: Negative for injury and deformity, Skin: Negative for injury, rash, and discoloration. 11:27 Neck: Positive for pain with movement, pain at rest, tenderness, of the right posterior aspect of neck, right lateral aspect of neck, left posterior aspect of neck and left lateral aspect of neck. 11:27 Neuro: Positive for headache. Exam: 11:27 Constitutional: This is a well developed, well nourished patient who is awake, alert, kb and in no acute distress. Head/Face: Normocephalic, atraumatic. Eyes: Pupils equal round and reactive to light, extra-ocular motions intact. Lids and lashes normal. Conjunctiva and sclera are non-icteric and not injected. Cornea within normal limits. Periorbital areas with no swelling, redness, or edema. ENT: Nares patent. No nasal discharge, no septal abnormalities noted. Tympanic membranes are normal and external auditory canals are clear. Oropharynx with no redness, swelling, or masses, exudates, or evidence of obstruction, uvula midline. Mucous membranes moist. Chest/axilla: Normal chest wall appearance and motion. Nontender with no deformity. No lesions are appreciated. Cardiovascular: Regular rate and rhythm with a normal S1 and S2. No gallops, murmurs, or rubs. Normal PMI, no JVD. No pulse deficits. Respiratory: Lungs have equal breath sounds bilaterally, clear to auscultation and percussion. No rales, rhonchi or wheezes noted. No increased work of breathing, no retractions or nasal flaring. Abdomen/GI: Soft, non-tender, with normal bowel sounds. No distension or tympany. No guarding or rebound. No evidence of tenderness throughout. Back: No spinal tenderness. No costovertebral tenderness. Full range of motion. Skin: Warm, dry with normal turgor. Normal color with no rashes, no lesions, and no evidence of cellulitis. MS/ Extremity: Pulses equal, no cyanosis. Neurovascular intact. Full, normal range of motion. Neuro: Awake and alert, GCS 15, oriented to person, place, time, and situation. Cranial nerves II-XII grossly intact. Motor strength 5/5 in all extremities. Sensory grossly intact. Cerebellar exam normal. Normal gait. 11:27 Neck: External neck: tenderness, that is moderate, of the left lateral aspect of neck and left posterior aspect of neck and right lateral aspect of neck and right posterior aspect of neck, C-spine: appears grossly normal, no vertebral tenderness, no crepitus. Vital Signs: 10:47 BP 141 / 82; Pulse 65; Resp 18 S; Temp 98.1(O); Pulse Ox 98% on R/A; Weight 54.43 kg aa5 (R); Height 5 ft. 3 in. (160.02 cm) (R); Pain 10/10; 10:47 Body Mass Index 21.26 (54.43 kg, 160.02 cm) aa5 MDM: 10:55 Patient medically screened. kb 11:26 Data reviewed: vital signs, nurses notes. Data interpreted: Pulse oximetry: on room air kb is 98 %. Interpretation: normal. Counseling: I had a detailed discussion with the patient and/or guardian regarding: the historical points, exam findings, and any diagnostic results supporting the discharge/admit diagnosis, radiology results, the need for outpatient follow up, a family practitioner, to return to the emergency department if symptoms worsen or persist or if there are any questions or concerns that arise at home. 13:02 Physician consultation: Sim Raygoza MD was contacted at 13:02, regarding consult, kb recommends Gabapentin 300mg BID, Baclofen and Tramadol, as well as outpatient follow up with Dr Dallas. . 08/30 11:12 Order name: CT Head C Spine; Complete Time: 12:08 kb Administered Medications: 11:19 Drug: [place] 5 mg-325 mg 1 tabs Route: PO; aa5 11:54 Follow up: Response: No adverse reaction aa5 11:20 Drug: predniSONE 40 mg Route: PO; aa5 11:54 Follow up: Response: No adverse reaction aa5 Disposition: 13:40 Co-signature as Attending Physician, Oseas Su MD I agree with the assessment and kdr plan of care. Disposition: 08/30/19 13:04 Discharged to Home. Impression: Cervicalgia, Headache, Foraminal Stenosis. - Condition is Stable. - Discharge Instructions: General Headache Without Cause, [id number], Radicular Pain. - Prescriptions for Neurontin 300 mg Oral Capsule - take 1 capsule by ORAL route 2 times per day; 20 capsule. Baclofen 10 mg Oral Tablet - take 1 tablet by ORAL route 3 times per day As needed; 20 tablet. - Medication Reconciliation Form, Thank You Letter, Antibiotic Education, Prescription Opioid Use form. - Follow up: Emergency Department; When: As needed; Reason: Worsening of condition. Follow up: Private Physician; When: 2 - 3 days; Reason: Recheck today's complaints, Continuance of care, Re-evaluation by your physician. Follow up: Jose G Dallas MD; When: 2 - 3 days; Reason: Recheck today's complaints. Signatures: Dispatcher [employer] EDWV Zahraa Craig, LABORATORY CHEMICAL ASSISTANT-C LABORATORY CHEMICAL ASSISTANT-Ckb Oseas Su MD MD [facility] Angelita Cody, RN RN aa5 Varsha Marcum RN RN Corrections: (The following items were deleted from the chart) 13:04 13:04 08/30/2019 13:04 Discharged to Home. Impression: Cervicalgia; Headache. Condition kb is Stable. Forms are Medication Reconciliation Form, Thank You Letter, Antibiotic Education, Prescription Opioid Use. Follow up: Emergency Department; When: As needed; Reason: Worsening of condition. Follow up: Private Physician; When: 2 - 3 days; Reason: Recheck today's complaints, Continuance of care, Re-evaluation by your physician. kb 13:05 13:04 08/30/2019 13:04 Discharged to Home. Impression: Cervicalgia; Headache; Foraminal kb Stenosis. Condition is Stable. Forms are Medication Reconciliation Form, Thank You Letter, Antibiotic Education, Prescription Opioid Use. Follow up: Emergency Department; When: As needed; Reason: Worsening of condition. Follow up: Private Physician; When: 2 - 3 days; Reason: Recheck today's complaints, Continuance of care, Re-evaluation by your physician. kb 13:15 13:05 08/30/2019 13:04 Discharged to Home. Impression: Cervicalgia; Headache; Foraminal hb Stenosis. Condition is Stable. Discharge Instructions: General Headache Without Cause, [id number], Radicular Pain. Prescriptions for Neurontin 300 mg Oral Capsule - take 1 capsule by ORAL route 2 times per day; 20 capsule, Baclofen 10 mg Oral Tablet - take 1 tablet by ORAL route 3 times per day As needed; 20 tablet. and Forms are Medication Reconciliation Form, Thank You Letter, Antibiotic Education, Prescription Opioid Use. Follow up: Emergency Department; When: As needed; Reason: Worsening of condition. Follow up: Private Physician; When: 2 - 3 days; Reason: Recheck today's complaints, Continuance of care, Re-evaluation by your physician. Follow up: Jose G Dallas; When: 2 - 3 days; Reason: Recheck today's complaints. kb
--- NOTE | 2019-08-30 13:05 | ER ---
Nurse's Notes [facility] Name: Sima Calhoun Age: 74 yrs Sex: Female : 1945 Arrival Date: 08/30/2019 Time: 10:37 Bed 12 Private MD: Diagnosis: Cervicalgia;Headache;Foraminal Stenosis Presentation: 08/30 10:45 Presenting complaint: Patient states: "I got done cleaning a house yesterday and I must aa5 of moved wrong or something because my neck is hurting". Transition of care: patient was not received from another setting of care. Onset of symptoms was August 2019. Risk Assessment: Do you want to hurt yourself or someone else? Patient reports no desire to harm self or others. Initial Sepsis Screen: Does the patient meet any 2 criteria? No. Patient's initial sepsis screen is negative. Does the patient have a suspected source of infection? No. Patient's initial sepsis screen is negative. Care prior to arrival: None. 10:45 Method Of Arrival: Wheelchair aa5 10:45 Acuity: JEANIE 4 aa5 Historical: - Allergies: 10:48 No Known Allergies; aa5 - Home Meds: 10:46 alprazolam 1 mg Oral Tb24 [Active]; atorvastatin 10 mg Oral tab 1 tab once daily aa5 [Active]; cyclobenzaprine 10 mg Oral tab 1 tab 3 times per day [Active]; dextroamphetamine-amphetamine(base) 15 mg Oral 1 tab once daily [Active]; levothyroxine 112 mcg tab 1 tab once daily [Active]; losartan 50 mg Oral tab 1 tab once daily [Active]; meloxicam 7.5 mg/5 mL Oral susp [Active]; metoprolol tartrate 50 mg Oral tab 1 tab once daily [Active]; Paxil 20 mg Oral tab 1 tab once daily [Active]; - PMHx: 10:46 ADD/ADHD; Anxiety; Chronic pain; Hyperlipidemia; Hypertension; Hypothyroidism; aa5 10:48 Arthritis; aa5 - PSHx: 10:46 Hysterectomy; aa5 - Immunization history:: Adult Immunizations up to date. - Social history:: Smoking status: Patient denies any tobacco usage or history of. - Ebola Screening: : No symptoms or risks identified at this time. Screenin:43 Abuse screen: Denies threats or abuse. Denies injuries from another. Nutritional hb screening: No deficits noted. Tuberculosis screening: No symptoms or risk factors identified. Fall Risk None identified. Assessment: 10:55 General: Appears uncomfortable, Behavior is calm, cooperative. Pain: Complains of pain aa5 in left lateral aspect of neck and left posterior aspect of neck and right lateral aspect of neck and right posterior aspect of neck Pain does not radiate. Pain currently is 10 out of 10 on a pain scale. Quality of pain is described as sharp, Is continuous, Aggravated by increased activity, Noted to be resistant to movement. Neuro: Level of Consciousness is awake, alert, obeys commands, Oriented to person, place, time, situation, Senior Warehouse Clerk are equal bilaterally Moves all extremities. Gait is steady, Speech is normal, Facial symmetry appears normal. Cardiovascular: Heart tones S1 S2 present Rhythm is regular. Respiratory: Airway is patent Respiratory effort is even, unlabored, Respiratory pattern is regular, symmetrical. GI: No signs and/or symptoms were reported involving the gastrointestinal system. : No signs and/or symptoms were reported regarding the genitourinary system. EENT: No signs and/or symptoms were reported regarding the EENT system. Derm: Skin is pink, warm \\T\\ dry. Musculoskeletal: Range of motion: intact in all extremities, Reports pain in left lateral aspect of neck and left posterior aspect of neck and right lateral aspect of neck and right posterior aspect of neck. 11:20 Reassessment: Patient is alert, oriented x 3, equal unlabored respirations, skin aa5 warm/dry/pink. Awaiting radiology, pt notified of wait time. . 11:54 Reassessment: Patient is alert, oriented x 3, equal unlabored respirations, skin aa5 warm/dry/pink. Pt back from CT . 13:00 Reassessment: Patient appears in no apparent distress at this time. Patient and/or hb family updated on plan of care and expected duration. Pain level reassessed. Patient is alert, oriented x 3, equal unlabored respirations, skin warm/dry/pink. Vital Signs: 10:47 BP 141 / 82; Pulse 65; Resp 18 S; Temp 98.1(O); Pulse Ox 98% on R/A; Weight 54.43 kg aa5 (R); Height 5 ft. 3 in. (160.02 cm) (R); Pain 10/10; 10:47 Body Mass Index 21.26 (54.43 kg, 160.02 cm) aa5 ED Course: 10:37 Patient arrived in ED. as 10:45 Triage completed. aa5 10:47 Arm band placed on. aa5 10:48 Angelita Cody, RN is Primary Nurse. aa5 10:54 Zahraa Craig FNP-C is [facility]. kb 10:54 Oseas Su MD is Attending Physician. kb 11:52 CT Head C Spine In Process Unspecified. EDMS 12:30 Patient has correct armband on for positive identification. hb 13:05 Jose G Dallas MD is Referral Physician. kb 13:14 No provider procedures requiring assistance completed. Patient did not have IV access hb during this emergency room visit. Administered Medications: 11:19 Drug: [place] 5 mg-325 mg 1 tabs Route: PO; aa5 11:54 Follow up: Response: No adverse reaction aa5 11:20 Drug: predniSONE 40 mg Route: PO; aa5 11:54 Follow up: Response: No adverse reaction aa5 Outcome: 13:04 Discharge ordered by MD. kb 13:14 Discharged to home ambulatory, with significant other. hb 13:14 Condition: stable 13:14 Discharge instructions given to patient, significant other, Instructed on discharge instructions, follow up and referral plans. medication usage, Demonstrated understanding of instructions, follow-up care, medications, Prescriptions given X 2. 13:15 Patient left the ED. hb Signatures: Dispatcher [employer] EDNC Zahraa Craig FNP-C FNP-Imani Snow as Angelita Cody, RN RN aa5 Varsha Marcum RN RN hb
[2019-08-30 13:26] VITALS: BP 141/82; TEMP 98.1; O2SAT 98
== END 2019-08-30 13:15 | disposition home or self-care (01) ==
LOC: ER 10:35
DX: M48.02 Spinal stenosis, cervical region (principal); M54.2 Cervicalgia; R51 Headache; E03.9 Hypothyroidism, unspecified; I10 Essential (primary) hypertension; E78.5 Hyperlipidemia, unspecified; F41.9 Anxiety disorder, unspecified
CPT/HCPCS: 70450; 72125; 99283; J7512

== ENCOUNTER 2021-11-21 13:24 | Emergency (ER) | payer OTHER ==
--- OUTSIDE RECORDS SUMMARY | 2021-11-21 13:29 | XMS REPORT | Continuity of Care Document ---
:1945 Author Organization [facility] t Address [address] [place] [address] Care Team Providers Name Role Phone SIMONA Attending Clinician Unavailable SIMONA Admitting Clinician Unavailable Payers Payer Name Policy Type Policy Number Effective Date Expiration Date S ourparul [facility] [id number] (MEDICARE REPLACEMENT/ADVANTAGE - PPO) [facility] [id number] Problems Condition Condition Condition Status Onset Resolution Last Treating Co mments Source Name Details Category Date Date Treatment Clinician Date Generalize Generalize Problem Active 2020- M [place] d anxiety d Anxiety 0-15 da disorder Disorder 00:00: [facility] Attention Attention Problem Active [place] deficit Deficit da hyperactiv Hyperactiv [facility] ity ity al disorder Disorder Health Outreac h Program Allergies, Adverse Reactions, Alerts This patient has no known allergies or adverse reactions. Social History Smoking Status Start Date Stop Date Source Former Smoker [place] [facility] Medications Ordered Filled Start Stop Current Ordering Indication Dosage Frequency Signature Comments Components Source Medication Medication Date Date Medication? Clinician (SIG) Name Name alprazolam alprazolam No alprazolam [place] 1 mg tablet 1 mg tablet 1 mg d a TAKE 1 TAKE 1 tablet [facility] TABLET BY TABLET BY TAKE 1 al MOUTH THREE MOUTH THREE TABLET BY Health TIMES DAILY TIMES DAILY MOUTH Outreac NEEDED NEEDED THREE h FOR ANXIETY FOR ANXIETY TIMES Program DAILY NEEDED FOR ANXIETY Amitiza 24 Amitiza 24 No Amitiza 24 [place] mcg capsule mcg capsule mcg d a capsule [facility] Amitiza 8 Amitiza 8 No Amitiza 8 [place] mcg capsule mcg capsule mcg d a capsule [facility] amoxicillin amoxicillin No amoxicilli [place] [phone] n 875 da mg-potassiu mg-potassiu mg-potassi [facility] m m um al clavulanate clavulanate clavulanat Health 125 mg 125 mg e 125 mg Outreac tablet TK 1 tablet TK 1 tablet TK h T PO BID T PO BID 1 T PO BID P rogram FOR 10 DAYS FOR 10 DAYS FOR 10 DAYS atorvastati atorvastati No atorvastat [place] n 10 mg n 10 mg in 10 mg da tablet TAKE tablet TAKE tablet [facility] 1 TABLET BY 1 TABLET BY TAKE 1 al MOUTH EVERY MOUTH EVERY TABLET BY Health DAY DAY MOUTH Outreac EVERY DAY h Program azithromyci azithromyci No azithromyc [place] n 250 mg n 250 mg in 250 mg da tablet TAKE tablet TAKE tablet [facility] DIRECTED DIRECTED TAKE al DIRECTED Health Outreac h Program baclofen 10 baclofen 10 No baclofen [place] mg tablet mg tablet 10 mg da tablet [facility] bromphenira bromphenira No bromphenir [place] mine-pseudo mine-pseudo amine-pseu da ephedrine-D ephedrine-D doephedrin [facility] M 2 mg-30 M 2 mg-30 e-DM 2 al mg-10 mg/5 mg-10 mg/5 mg-30 He alth mL oral mL oral mg-10 mg/5 Out reac syrup TAKE syrup TAKE mL oral h 10 ML BY 10 ML BY syrup TAKE P rogram MOUTH EVERY MOUTH EVERY 10 ML BY 6 HOURS 6 HOURS MOUTH NEEDED FOR NEEDED FOR EVERY 6 COUGH AND COUGH AND HOURS CONGESTION CONGESTION NEEDED FOR COUGH AND CONGESTION cefdinir cefdinir No cefdinir [place] 300 mg 300 mg 300 mg da capsule capsule capsule [facility] p TAKE 2 TAKE 2 TAKE 2 al CAPSULES BY CAPSULES BY CAPSULES Health MOUTH EVERY MOUTH EVERY BY MOUTH Outreac DAY FOR 10 DAY FOR 10 EVERY DAY h DAYS DAYS FOR 10 Program DAYS cyclobenzap cyclobenzap No cyclobenza [place] rine 10 mg rine 10 mg leslie 10 da tablet TK 1 tablet TK 1 mg tablet [facility] T PO TID T PO TID TK 1 T PO al PRN FOR PRN FOR TID PRN Health MUSCLE MUSCLE FOR MUSCLE Outre ac SPASMS SPASMS SPASMS h Program Deconex IR Deconex IR No Deconex IR [place] 10 mg-385 10 mg-385 10 mg-385 da mg tablet mg tablet mg tablet [facility] TAKE ONE TAKE ONE TAKE ONE al TABLET BY TABLET BY TABLET BY Health MOUTH EVERY MOUTH EVERY MOUTH Outreac 6 HOURS 6 HOURS EVERY 6 h NEEDED FOR NEEDED FOR HOURS Program COUGH COUGH NEEDED FOR COUGH dextroamphe dextroamphe No dextroamph [place] tamine ER tamine ER etamine ER da 15 mg 15 mg 15 mg [facility] capsule,ext capsule,ext capsule,ex al ended ended tended Health release release release Outrea c TAKE 1 TAKE 1 TAKE 1 h CAPSULE BY CAPSULE BY CAPSULE BY Program MOUTH THREE MOUTH THREE MOUTH TIMES DAILY TIMES DAILY THREE TIMES DAILY duloxetine duloxetine No duloxetine [place] 30 mg 30 mg 30 mg da capsule,del capsule,del capsule,de [facility] ayed ayed layed al release release release Health Outreac h Program duloxetine duloxetine No duloxetine [place] 60 mg 60 mg 60 mg da capsule,del capsule,del capsule,de [facility] ayed ayed layed al release release release Health Outreac h Program Fluad Fluad No Fluad [place] 64yr [age]yr [facility] up(PF)45 up(PF)45 up(PF)45 al mcg(15 mcg(15 mcg(15 Health mcgx3)/0.5 mcgx3)/0.5 mcgx3)/0.5 Outreac mL mL mL h intramuscul intramuscul intramuscu Program ar syringe ar syringe lar ADM 0.5ML ADM 0.5ML syringe IM UTD IM UTD ADM 0.5ML IM UTD gabapentin gabapentin No gabapentin [place] 300 mg 300 mg 300 mg da capsule capsule capsule [facility] ivermectin ivermectin No ivermectin [place] 3 mg tablet 3 mg tablet 3 mg d a TAKE 4 TAKE 4 tablet [facility] TABLETS BY TABLETS BY TAKE 4 a l MOUTH EVERY MOUTH EVERY TABLETS BY Health DAY FOR 5 DAY FOR 5 MOUTH Outr eac DAYS DAYS EVERY DAY h FOR 5 DAYS Program levofloxaci levofloxaci No levofloxac [place] n 500 mg n 500 mg in 500 mg da tablet TAKE tablet TAKE tablet [facility] 1 TABLET BY 1 TABLET BY TAKE 1 al MOUTH EVERY MOUTH EVERY TABLET BY Health DAY DAY MOUTH Outreac EVERY DAY h Program levothyroxi levothyroxi No levothyrox [place] ne 112 mcg ne 112 mcg ine 112 da tablet tablet mcg tablet [facility] levothyroxi levothyroxi No levothyrox [place] ne 75 mcg ne 75 mcg ine 75 mcg da tablet TAKE tablet TAKE tablet [facility] 1 TABLET BY 1 TABLET BY TAKE 1 al MOUTH EVERY MOUTH EVERY TABLET BY Health DAY DAY MOUTH Outreac EVERY DAY h Program lisinopril lisinopril No lisinopril [place] 5 mg tablet 5 mg tablet 5 mg d a tablet [facility] losartan losartan No losartan [place] 100 mg 100 mg 100 mg da tablet tablet tablet [facility] losartan 25 losartan 25 No losartan [place] mg tablet mg tablet 25 mg da tablet [facility] losartan 50 losartan 50 No losartan [place] mg tablet mg tablet 50 mg da tablet [facility] meloxicam meloxicam No meloxicam [place] 7.5 mg 7.5 mg 7.5 mg da tablet tablet tablet [facility] methylpheni methylpheni No methylphen [place] date 20 mg date 20 mg idate 20 da tablet tablet mg tablet [facility] methylpredn methylpredn No methylpred [place] isolone 4 isolone 4 nisolone 4 da mg tablets mg tablets mg tablets [facility] in a dose in a dose in a dose al pack TAKE pack TAKE pack TAKE Health DIRECTED DIRECTED [facility] DIRECTED h Program metoprolol metoprolol No metoprolol [place] succinate succinate succinate da ER 100 mg ER 100 mg ER 100 mg [facility] tablet,exte tablet,exte tablet,ext al nded nded ended Health release 24 release 24 release 24 Outreac hr TAKE 1 hr TAKE 1 hr TAKE 1 h TABLET BY TABLET BY TABLET BY Program MOUTH EVERY MOUTH EVERY MOUTH DAY DAY EVERY DAY metoprolol metoprolol No metoprolol [place] succinate succinate succinate da ER 25 mg ER 25 mg ER 25 mg Epi scop tablet,exte tablet,exte tablet,ext al nded nded ended Health release 24 release 24 release 24 Outreac hr hr hr h Program metoprolol metoprolol No metoprolol [place] succinate succinate succinate da ER 50 mg ER 50 mg ER 50 mg [facility] tablet,exte tablet,exte tablet,ext al nded nded ended Health release 24 release 24 release 24 Outreac hr hr hr h Program metoprolol metoprolol No metoprolol [place] tartrate 25 tartrate 25 tartrate da mg tablet mg tablet 25 mg [facility] hand tablet al Health Outreac h Program paroxetine paroxetine No paroxetine [place] 10 mg 10 mg 10 mg da tablet TK 1 tablet TK 1 tablet TK [facility] T PO QD T PO QD 1 T PO QD al Health Outreac h Program paroxetine paroxetine No paroxetine [place] 20 mg 20 mg 20 mg da tablet tablet tablet [facility] prednisone prednisone No prednisone [place] 10 mg 10 mg 10 mg da tablet tablet tablet [facility] triamcinolo triamcinolo No triamcinol [place] ne ne one da acetonide acetonide acetonide [facility] 0.5 % 0.5 % 0.5 % al topical topical topical Health cream cream cream Outreac h Program Procedures This patient has no known procedures. Encounters Start End Encounter Admission Attending Care Care Encounter Source Date/Time Date/Time Type Type Clinicians Facility Department ID 2021-11-17 2021-11-17 Out[place] [id number] [place] 02:11:00 02:11:00 N 0413 [facility] 2021-11-16 2021-11-16 [place] [id number] [place] 11:49:00 11:49:00 N 0412 [facility] 2021-08-31 2021-08-31 Outpatient [place] [id number] [place] 05:59:00 05:59:00 N 0125 [facility] 2021-08-31 2021-08-31 Toni FORDE [place] - [id number] Danie [facility] 00:00:00 00:00:00 Dayna Amin da PSYD: [address] [facility] [address], [facility] [address] h , Ph. Program (979) -20072021-08-24 2021-08-24 Outpatient SAGLIME_JOH MEHOP MEHOP 872 [place] 01:15:00 01:15:00 N 0118 [facility] 2021-07-23 2021-07-23 Outpatient SAGLIME_JOH MEHOP MEHOP 872 [place] 12:07:00 12:07:00 N 1217 [facility] 2021-07-23 2021-07-23 Toni FORDE [place] - [id number] M [place] 00:00:00 00:00:00 Dayna Amin da PSYD: [address] [facility] [address], [facility] [address] h , Ph. Program (979) --20072021-07-21 2021-07-21 Outpatient SAGLIME_JOH MEHOP MEHOP 872 [place] 01:04:00 01:04:00 N 1215 da [facility] 2021-07-13 2021-07-13 Outpatient SAGLIME_JOH MEHOP MEHOP 872 [place] 04:16:00 04:16:00 N 1207 [facility] 2021-07-13 2021-07-13 Toni [place] - [id number] M [place] 00:00:00 00:00:00 Dayna Amin da PSYD: [address] [facility] [address], [facility] [address] h , Ph. Program (979) --20072021-06-15 2021-06-15 Outpatient SAGLIME_JOH MEHOP MEHOP 872 [place] 01:59:00 01:59:00 N 1109 [facility] 2021-05-21 2021-05-21 Outpatient SAGLIME_MANA PAHOP PAHOP 872 [place] 10:58:00 10:58:00 N 1015 da [facility] 2021-05-21 2021-05-21 Toni FORDE [place] - [id number] M [facility] 00:00:00 00:00:00 Mega [place] da PSYD: [address] [facility] [address], [facility] [address] h , Ph. Program (979) --20072021-05-11 2021-05-11 Outpatient SAGLIME_MANA [facility] 87 [place] 11:59:00 11:59:00 N 1005 da [facility] 2021-05-11 2021-05-11 Toni FORDE [place] - [id number] M at[place] 00:00:00 00:00:00 Mega [place] da PSYD: [address] [facility] [address], [facility] [address] h , Ph. Program (979) 2021-05-04 2021-05-04 Outpatient SAGLIME_MANA PAHOP [facility] 87 [place] 10:49:00 10:49:00 N 0928 da [facility] 2021-05-04 2021-05-04 Toni FORDE [place] - [id number] M at[place] 00:00:00 00:00:00 Sagkenjie [place] da PSYD: [address] [facility] [address], [facility] [address] h , Ph. Program (979) -20072021-04-27 2021-04-27 Outpatient SAGLIME_MANA PAHOP PAHOP 872 [place] 12:25:00 12:25:00 N 0921 da [facility] 2021-04-27 2021-04-27 Toni FORDE [place] - [id number] M at[place] 00:00:00 00:00:00 Dayna Amin da PSYD: [address] [facility] [address], [facility] [address] h , Ph. Program (979) --20072021-03-31 2021-03-31 Outpatient SAGLIME_JOH MEHOP MEHOP 872 [place] 04:32:00 04:32:00 N 0825 da [facility] 2021-03-31 2021-03-31 Toni FORDE [place] - [id number] M [facility] 00:00:00 00:00:00 Dayna Amin da PSYD: [address] [facility] [address], [facility] [address] h , Ph. Program (979) --20072021-03-19 2021-03-19 Outpatient SAGLIME_JOH MEHOP MEHOP 872 [place] 02:55:00 02:55:00 N 0813 da [facility] 2021-03-19 2021-03-19 Toni FORDE [place] - [id number] M [facility] 00:00:00 00:00:00 Dayna Amin da PSYD: [address] [facility] [address], [facility] [address] h , Ph. Program (979) -20072021-02-19 2021-02-19 Outpatient SAGLIME_JOH MEHOP MEHOP 872 [place] 12:09:00 12:09:00 N 0716 [facility] 2021-02-11 2021-02-11 Outpatient SAGLIME_JOH MEHOP MEHOP 872 [place] 01:45:00 01:45:00 N 0708 [facility] 2021-02-01 2021-02-01 Outpatient SAGLIME_MANA MEHOP MEHOP 872 [place] 11:53:00 11:53:00 N 0628 da [facility] 2021-02-01 2021-02-01 Toni FORDE [place] - [id number] at[place]or 00:00:00 00:00:00 Dyana Amin da PSYD: [address] [facility] [address], [facility] [address] h , Ph. Program (979) --20072021-01-27 2021-01-27 Outpatient SAGLIME_MANA MEHOP MEHOP 872 [place] 12:01:00 12:01:00 N 0623 [facility] 2021-01-27 2021-01-27 Toni FORDE [place] - [id number] M [facility] 00:00:00 00:00:00 Dayna Amin da PSYD: [address] [facility] [address], [facility] [address] h , Ph. Program (979) --20072021-01-12 2021-01-12 Outpatient SAGLIME_JOH MEHOP MEHOP 872 [place] 03:04:00 03:04:00 N 0608 da [facility] 2021-01-12 2021-01-12 Toni FORDE [place] - [id number] M at[place] 00:00:00 00:00:00 Michael Amina da PSYD: [address] [facility] [address], [facility] [address] h , Ph. Program (979) -20072021-01-06 2021-01-06 Outpatient SAGLIME_JOH MEHOP MEHOP 872 [place] 01:04:00 01:04:00 N 0602 da [facility] 2021-01-06 2021-01-06 Toni Burden [place] - [id number] M at[place] 00:00:00 00:00:00 Dayna Amin da PSYD: [address] [facility] [address] [facility] , Ph. Program (979) --20072020-12-29 2020-12-29 Outpatient SAGLIME_JOH MEHOP MEHOP 872 [place] 03:04:00 03:04:00 N 0525 da [facility] 2020-12-29 2020-12-29 Toni Burden [place] - [id number] M at[place] 00:00:00 00:00:00 Dayna Amin da PSYD: [address] [facility] [address] [facility] , Ph. Program (979) --20072020-12-22 2020-12-22 Outpatient SAGLIME_JOH MEHOP MEHOP 872 [place] 10:51:00 10:51:00 N 0518 da [facility] 2020-12-22 2020-12-22 Toni FORDE [place] - [id number] at[place]or 00:00:00 00:00:00 Dayna Amin da PSYD: [address] [facility] [address] [facility] , Ph. Program (979) --20072020-12-15 2020-12-15 Outpatient SAGLIME_JOH MEHOP MEHOP 872 [place] 11:55:00 11:55:00 N 0511 da [facility] 2020-12-15 2020-12-15 Toni FORDE [place] - [id number] M [facility] 00:00:00 00:00:00 Dayna Amin da PSYD: [address] [address], [facility] [place] [facility] Outreac [address] h , Ph. Program (979) --20072020-12-04 2020-12-04 Outpatient SAGLIME_MANA PAHOP PAHOP 872 [place] 12:17:00 12:17:00 N 0430 da [facility] 2020-12-04 2020-12-04 Toni FORDE [place] - [id number] M at[place]or 00:00:00 00:00:00 [place] PSYD: [address] [facility] sc[facility] Chung [facility] [address] h , Ph. Program (979) --20072020-04-24 2020-04-24 Outpatient SAGLIME_MANA [place]HOP [place] [id number] [place] 12:27:00 12:27:00 N 0918 [facility] 2020-04-24 2020-04-24 Toni FORDE [place] - [id number] M at[place]or 00:00:00 00:00:00 Brennan [place] da PSYD: [address] [facility] [address] h , Ph. Program (979) -20072020-04-21 2020-04-21 Outpatient SAGLIME_JOH PAHOP PAHOP 872 [place] 10:35:00 10:35:00 N 0917 [facility] 2020-02-17 2020-02-17 Outpatient SAGLIME_JOH MEHOP PAHOP 872 [place] 09:11:00 09:11:00 N 0713 [facility] 2020-02-14 2020-02-14 Outpatient SAGLIME_JOH MEHOP PAHOP 872 [place] 04:11:00 04:11:00 N 0710 [facility] 2020-02-14 2020-02-14 Toni FORDE [place] - [id number] M [facility] 00:00:00 00:00:00 Dayna Amin PSYD: [address] [facility]ung [facility] [address] h , Ph. Program [phone] Results This patient has no known results.
--- NOTE | 2021-11-21 15:11 | RAD REPORT ---
EXAM DESCRIPTION: CT - Head Brain Wo Cont - 11/21/2021 3:04 pm CLINICAL HISTORY: Headache COMPARISON: 2019 TECHNIQUE: Computed axial tomography of the head was obtained. IV contrast was not requested. All CT scans are performed using dose optimization technique as appropriate and may include automated exposure control or mA/KV adjustment according to patient size. FINDINGS: An intracranial bleed is not seen . The ventricles are normal in caliber. No extra-axial fluid collection is noted. Mild low-density areas within periventricular, deep and subcortical white matter likely represent isc hemic changes secondary to small vessel disease. Fluid within the sinuses/ mastoids is not seen. IMPRESSION: No acute intracranial abnormality is seen. If patient's symptoms persist MRI of the bra in would be recommended.
--- NOTE | 2021-11-21 15:53 | ER ---
Nurse's Notes [facility] Name: Sima Calhoun Age: 76 yrs Sex: Female : 1945 Arrival Date: 11/21/2021 Time: 13:29 Bed Waiting Private MD: Diagnosis: Headache Presentation: 11/21 15:45 Chief complaint: Patient states: About 4 days ago I started having a really bad pain in jb4 the back of my head. It stayed for 3 days and started causing the muscles in my neck to start hurting. I have been under a lot of stress lately. Coronavirus screen: At this time, the client does not indicate any symptoms associated with coronavirus-19. Ebola Screen: No symptoms or risks identified at this time. Initial Sepsis Screen: Does the patient meet any 2 criteria? No. Patient's initial sepsis screen is negative. Does the patient have a suspected source of infection? No. Patient's initial sepsis screen is negative. Risk Assessment: Do you want to hurt yourself or someone else? Patient reports no desire to harm self or others. Onset of symptoms was November 21, 2021. Transition of care: patient was not received from another setting of care. 15:45 Method Of Arrival: Ambulatory jb4 15:45 Acuity: JEANIE 4 jb4 Historical: - Allergies: 15:47 No Known Allergies; jb4 - PMHx: 15:47 ADD/ADHD; Arthritis; Hyperlipidemia; Chronic pain; Anxiety; Hypertension; jb4 Hypothyroidism; - PSHx: 15:47 Appendectomy; jb4 - Immunization history:: Adult Immunizations up to date. - Social history:: Smoking status: unknown. Screenin:48 Abuse screen: Denies threats or abuse. Nutritional screening: No deficits noted. jb4 Tuberculosis screening: No symptoms or risk factors identified. Fall Risk None identified. Assessment: 15:48 General: Appears in no apparent distress. comfortable, Behavior is calm, cooperative, jb4 appropriate for age. Pain: Denies pain. Neuro: Level of Consciousness is awake, alert, obeys commands, Oriented to person, place, time, situation. Cardiovascular: Cardiovascular: Patient's skin is warm and dry. Respiratory: Airway is patent Respiratory effort is even, unlabored, Respiratory pattern is regular, symmetrical. GI: No signs and/or symptoms were reported involving the gastrointestinal system. : No signs and/or symptoms were reported regarding the genitourinary system. EENT: No signs and/or symptoms were reported regarding the EENT system. Derm: Skin is intact, Skin is pink, warm \T\ dry. Musculoskeletal: Circulation, motion, and sensation intact. Range of motion: intact in all extremities. Vital Signs: 15:45 BP 160 / 81; Pulse 65; Resp 16; Temp 98.7(TE); Pulse Ox 100% on R/A; Weight 46.27 kg jb4 (R); Height 5 ft. 3 in. (160.02 cm) (R); Pain 0/10; 15:45 Body Mass Index 18.07 (46.27 kg, 160.02 cm) jb4 ED Course: 13:29 Patient arrived in ED. jj6 14:08 Andre Castellanos NP is PHCP. pm1 14:09 Deon Adams MD is Attending Physician. pm1 15:06 CT Head Brain wo Cont In Process Unspecified. EDMS 15:47 Triage completed. jb4 15:47 Arm band placed on right wrist. jb4 15:48 Patient has correct armband on for positive identification. jb4 15:48 No provider procedures requiring assistance completed. Patient did not have IV access jb4 during this emergency room visit. Administered Medications: No medications were administered Outcome: 15:53 Discharge ordered by . pm1 15:56 Discharged to home ambulatory. jb4 15:56 Condition: stable 15:56 Discharge instructions given to patient, Instructed on discharge instructions, follow up and referral plans. medication usage, Demonstrated understanding of instructions, follow-up care, medications, Prescriptions given X 1. 15:56 Patient left the ED. jb4 Signatures: Dispatcher [employer] EDKY Andre Castellanos NP SYSTEMS ADMIN pm1 Jose G Gupta, RN RN jb4 Jayne Schmitt jj6
--- NOTE | 2021-11-21 15:54 | EDPHYS ---
Physician Documentation [facility] Name: Sima Calhoun Age: 76 yrs Sex: Female : 1945 Arrival Date: 11/21/2021 Time: 13:29 Bed Waiting Private MD: VIKAS Physician Deon Adams HPI: 11/21 14:54 This 76 yrs old Female presents to ER via Ambulatory with complaints of Headache, pm1 Nausea. 14:54 The patient complains of pain to the right occipital area. The patient describes the pm1 headache as aching, constant. Onset: The symptoms/episode began/occurred 4 day(s) ago, and resolved today. Patient reported nausea present with headache and it resolved when her headache resolved. Patient did not want to come into the ER because it is typical of her tension headaches and it now resolved. Her wanted her to come to the ER to be evaluated. Associated signs and symptoms: Pertinent negatives: dizziness, fever, vomiting. Severity of symptoms: in the emergency department the pain has resolved. Headache History: The patient has had previous headaches and this one is similar to previous episodes. The symptoms are alleviated by over the counter pain medication, Nsaids, the symptoms are aggravated by nothing. The patient has experienced similar episodes in the past, multiple times. The patient has not recently seen a physician. Historical: - Allergies: 15:47 No Known Allergies; jb4 - PMHx: 15:47 ADD/ADHD; Arthritis; Hyperlipidemia; Chronic pain; Anxiety; Hypertension; jb4 Hypothyroidism; - PSHx: 15:47 Appendectomy; jb4 - Immunization history:: Adult Immunizations up to date. - Social history:: Smoking status: unknown. ROS: 14:54 Constitutional: Negative for fever, chills, and weight loss, Cardiovascular: Negative pm1 for chest pain, palpitations, and edema, Respiratory: Negative for shortness of breath, cough, wheezing, and pleuritic chest pain. 14:54 Back: Negative for injury and pain, MS/Extremity: Negative for injury and deformity, Skin: Negative for injury, rash, and discoloration. 14:54 Abdomen/GI: Positive for Nausea resolved, Negative for vomiting. 14:54 Neuro: Positive for headache, of the right occipital area, Resolved. 14:54 All other systems are negative. Exam: 14:54 Constitutional: This is a well developed, well nourished patient who is awake, alert, pm1 and in no acute distress. Head/Face: Normocephalic, atraumatic. 14:54 Back: No spinal tenderness. No costovertebral tenderness. Full range of motion. Skin: Warm, dry with normal turgor. Normal color with no rashes, no lesions, and no evidence of cellulitis. MS/ Extremity: Pulses equal, no cyanosis. Neurovascular intact. Full, normal range of motion. 14:54 Eyes: Exam is negative for acute changes, Pupils: no acute changes, Extraocular movements: no acute changes, Conjunctiva: normal, no injection. 14:54 ENT: Exam is negative for acute changes, Mouth: no acute changes, Lips: normal, moist, Oral mucosa: normal, pink and intact, moist. 14:54 Neck: Exam negative for acute changes. 14:54 Cardiovascular: Exam negative for acute changes, Rate: normal, Rhythm: regular, Pulses: no pulse deficits are appreciated, Heart sounds: normal. 14:54 Respiratory: Exam negative for acute changes, respiratory distress, shortness of breath. 14:54 Abdomen/GI: Exam negative for acute changes, Inspection: abdomen appears normal, Palpation: abdomen is soft and non-tender, in all quadrants. 14:54 Neuro: Exam negative for acute changes, Orientation: is normal, Mentation: is normal, Motor: is normal, moves all fours. Vital Signs: 15:45 BP 160 / 81; Pulse 65; Resp 16; Temp 98.7(TE); Pulse Ox 100% on R/A; Weight 46.27 kg jb4 (R); Height 5 ft. 3 in. (160.02 cm) (R); Pain 0/10; 15:45 Body Mass Index 18.07 (46.27 kg, 160.02 cm) jb4 MDM: 14:52 Patient medically screened. pm1 15:52 Data reviewed: vital signs. Data interpreted: Pulse oximetry: on room air is 100 %. pm1 Interpretation: normal. Counseling: I had a detailed discussion with the patient and/or guardian regarding: the historical points, exam findings, and any diagnostic results supporting the discharge/admit diagnosis, radiology results, the need for outpatient follow up, to return to the emergency department if symptoms worsen or persist or if there are any questions or concerns that arise at home. 11/21 14:50 Order name: CT Head Brain wo Cont; Complete Time: 15:18 pm1 Administered Medications: No medications were administered Disposition Summary: 11/21/21 15:53 Discharge Ordered Location: Home pm1 Problem: new pm1 Symptoms: have improved pm1 Condition: Stable pm1 Diagnosis - Headache pm1 Followup: pm1 - With: Emergency Department - When: As needed - Reason: Worsening of condition Followup: pm1 - With: Private Physician - When: 2 - 3 days - Reason: Recheck today's complaints, Continuance of care, Re-evaluation by your physician Discharge Instructions: - Discharge Summary Sheet pm1 - General Headache Without Cause pm1 - Tension Headache, Adult pm1 Forms: - Medication Reconciliation Form pm1 - Thank You Letter pm1 - Antibiotic Education pm1 - Prescription Opioid Use pm1 Prescriptions: - ondansetron 4 mg Oral tablet,disintegrating - place 1 tablet by TRANSLINGUAL route every 8 hours As needed; 12 tablet; pm1 Refills: 0, Product Selection Permitted Addendum: 11/26/2021 07:43 Co-signature as Attending Physician, Deon Adams MD I agree with the assessment and c solorio plan of care. Signatures: Dispatcher [employer] Deon Last MD MD cha Marinas, Patrick, ENTRY REP ENTRY REP pm1 Jose G Gupta, RN RN jb4
[2021-11-21 17:16] VITALS: BP 160/81; TEMP 98.7; O2SAT 100
== END 2021-11-21 15:56 | disposition home or self-care (01) ==
LOC: ER 13:24
DX: R51.9 Headache, unspecified (principal); R11.0 Nausea; I10 Essential (primary) hypertension; F41.9 Anxiety disorder, unspecified; E78.5 Hyperlipidemia, unspecified; G89.29 Other chronic pain
CPT/HCPCS: 70450; 99283